=== PATIENT | male | born 1970 | race Caucasian/White ===

== ENCOUNTER 2023-04-10 23:14 | Emergency (ER) | payer MEDICAID, SELFPAY ==
[2023-04-10 23:18] VITALS: BP 117/58; PULSE 78; RESP 16; TEMP 36.4; O2SAT 98; BMI 21.7
--- NOTE | 2023-04-10 23:28 | ECG_ITS ---
[facility] Test Date: 2023-04-10 Pat Name: Jose Francisco Barber Department: Room: Gender: Male Flavor Maker: : 1970 Requested By: Remigio Couch Order Number: [id number] Betty MD: Yamilet Flynn M.D. Measurements Intervals [place] Rate: 82 P: 67 DE: 159 QRS: 78 QRSD: 106 T: 51 QT: 359 QTc: 420 Interpretive Statements SINUS RHYTHM No previous ECG available for comparison Electronically Signed On 04-11-2023 21:31:04 CDT by Yamilet Flynn M.D. [email or web address]
--- NOTE | 2023-04-10 23:37 | ED_ITS ---
HPI - General Adult General: Chief complaint: General Medical Stated complaint: wasp sting Time Seen by Provider: 04/10/23 23:18 History of Present Illness: 52-year-old male patient was brought in by EMS after being stung by a wasp 2 to 3 hours prior to arrival. Patient reports that he was stung and had increased redness and swelling to his right index finger. Patient had taken some diphenhydramine 50 mg. After taking the Benadryl shortly thereafter he felt like he was going to pass out and had palpitations in his chest. Patient has full resolution of symptoms on arrival to the ER. Patient appears nontoxic. No acute distress is noted. Patient does endorse drinking 3 alcoholic beverages. Review of Systems General: Reports: 10 or more systems reviewed and unremarkable except in HPI and below Musc: Reports: extremity pain and extremity swelling Physical Exam Const: COMMON NORMALS: alert HENMT: COMMON NORMALS: normocephalic HEAD & SCALP: normocephalic Neck/C-Spine: COMMON NORMALS: full ROM Resp: COMMON NORMALS: normal respiratory effort and clear to auscultation bilaterally AUSCULTATION: clear to auscultation bilaterally Cardio: COMMON NORMALS: regular rate and regular rhythm RATE: regular rate RHYTHM: regular rhythm Back/Pelvis: COMMON NORMALS: thoracic and lumbar spine normal to inspection Extremity: LEFT UPPER EXTREMITY: Yes hand & digits (Index finger has some redness and swelling, range of motion intact) Left hand and digits: Yes inspection, Yes palpation and Yes ROM Neuro: SENSORIUM/ORIENTATION: Yes alert Skin: COMMON NORMALS: turgor normal GENERAL SKIN EXAM: turgor normal Course Vital Signs: Vital signs: Vital Signs Temperature 97.5 F L 04/10/23 23:18 Pulse Rate 78 04/10/23 23:18 Respiratory Rate 16 04/10/23 23:18 Blood Pressure 117/58 04/10/23 23:18 Pulse Oximetry 98 04/10/23 23:18 Oxygen Delivery Me thod Room Air 04/10/23 23:[address] [facility] - General Adult Medical Decision Making Patient comes in for evaluation of insect sting with pain and swelling to the finger. On exam patient appears nontoxic. Patient did report an episode of palpitations that he was concerned about. Vital signs are normal. EKG shows normal sinus rhythm. Differential diagnosis includes not limited to local reaction insect bite, vasovagal syncope, anxiety, allergic reaction, anaphylaxis. No sign of serious illness or injury was noted. Patient was given 10 mg of dexamethasone and was recommended to continue with loratadine and ibuprofen for pain and discomfort. Patient and family both reported understanding and agreed to plan. No radiology studies performed this visit Discharge Plan Discharge Patient Disposition: Home Clinical Impression: Accidental wasp sting Condition: Stable Prescriptions: New loratadine 10 mg tablet 10 mg PO BID PRN (Reason: allergy symptoms) Qty: 40 0RF Rx Instructions: Use 1 to 2 tablets every 12 hours as needed for itching, redness, rash. ibuprofen 600 mg tablet 600 mg PO Q6H PRN (Reason: pain) Qty: 30 0RF Discharge Orders: Discharge ED (Routine); Ordered 04/10/23 Ordered By: Remigio Soni Referrals: Yao Singh PA [Primary Care Provider] - Discharge Diet: Usual diet Discharge Activity: Increase activity as tolerated Patient Instructions: Insect Bite or Sting (ED) Activity Restrictions/Additional Instructions: Use Claritin 10 mg 1 to 2 tablets every 12 hours as needed for itching, redness or swelling. Use ibuprofen 600 mg 1 tablet every 6 hours as needed for pain and swelling. Drink plenty of water with medications. Activity as tolerated. Follow-up with primary care for further instructions. Coding Level of Care Code ED Therapeutic Specialist for Ziggy Jackson
[2023-04-10] MEDS: dexamethasone 10 mg/mL INJ IM (23:51)
[2023-04-11 00:10] VITALS: BP 115/80; PULSE 83; RESP 18; O2SAT 95
== END 2023-04-11 00:09 | disposition home or self-care (01) ==
PROVIDERS: Emergency Provider Nurse Practitioner Family; PCP Emergency Medicine
DX: T63.461A Toxic effect of venom of wasps, accidental (unintentional), initial encounter (principal)
CPT/HCPCS: 93005; 96372; 99284; J1100

== ENCOUNTER → 2023-10-28 08:28 | Outpatient (BNVA) | payer BC, MEDICAID, SELFPAY | PROVIDERS: PCP Nurse Practitioner Family; Visit Provider Nurse Practitioner Family | DX: R10.9 Unspecified abdominal pain (principal) | CPT/HCPCS: 74018 ==

== ENCOUNTER 2023-11-15 07:30 | Outpatient (CLI) | payer BC, MEDICAID, SELFPAY ==
--- NOTE | 2023-11-15 07:45 | US_ITS ---
WS: [id number] RIGHT UPPER QUADRANT ULTRASOUND HISTORY: R10.10 - Upper abdominal pain, unspecified COMPARISON: None available. Liver: 17.4 cm in length. Liver is top normal size. Hyperechoic mass in the RIGHT lobe measuring 10 x 10 x 8 mm is most likely hemangioma. There are no hypoechoic masses or bile duct dilatation. Portal Vein: Normal hepatopetal flow with monophasic waveform. Gallbladder: Normally distended gallbladder with no stones or wall thickening. CBD: 0.4 cm Pancreas: Pancreas is normal size. The pancreatic tail is obscured by bowel gas. Otherwise normal. Right kidney: 10.0 cm in length. Normal size and echogenicity. No hydronephrosis or mass. Aorta and IVC: Unremarkable abdominal aorta and IVC. No ascites. US/US gall bladder [id number] IMPRESSION: 1. Normal gallbladder and bile ducts. 2. Hyperechoic mass in the RIGHT lobe of the liver is most consistent with a s mall benign hemangioma.
== END 2023-11-15 07:31 | disposition home or self-care (01) ==
LOC: RAD 07:30
PROVIDERS: PCP Nurse Practitioner Family; Visit Provider Nurse Practitioner Family
DX: R10.10 Upper abdominal pain, unspecified (principal); R16.0 Hepatomegaly, not elsewhere classified
CPT/HCPCS: 76705

== ENCOUNTER → 2024-01-30 11:30 | Outpatient (BNVA) | payer BC, MEDICAID, SELFPAY | PROVIDERS: PCP Nurse Practitioner Family; Visit Provider Family Medicine | DX: R10.10 Upper abdominal pain, unspecified (principal) | CPT/HCPCS: 80053; 83690; 85025; 86140 ==

== ENCOUNTER → 2024-02-06 15:53 | Outpatient (BNVA) | payer BC, MEDICAID, SELFPAY | PROVIDERS: PCP Nurse Practitioner Family; Visit Provider Family Medicine | DX: D48.7 Neoplasm of uncertain behavior of other specified sites (principal) | CPT/HCPCS: 88305 ==